=== PATIENT | female | born 1970 | race Caucasian/White ===

== ENCOUNTER 2017-04-28 12:57 | Emergency (ER) | payer BC ==
[~2017-04-28] VITALS: Ht 167.6 cm; Wt 60.1 kg
[2017-04-28 13:11] VITALS: TEMP 36.7; Ht 167.6 cm; Wt 60.1 kg
--- NOTE | 2017-04-28 13:58 | EMERGENCY ROOM VISIT NOTE ---
History First contact with patient: 13:22 Chief Complaint: LEG PAIN,LEG INJURY Stated Complaint: PAIN IN UPPER RIGHT INNER THIGH-POSSIBLE BLOOD CASEY History of Present Illness The patient is a 46 year old female who presents to the Emergency Room with complaints of right leg pain and swelling for the last 3 days. The patient denies any injury. She is very active and healthy. She is particularly complaining of pain up near the right side of her groin. It is tender to touch. The pain is worse with coughing. The patient denies any history of blood clots. She denies any chest pain or difficulty breathing. She does not smoke. She does not take any form of contraception. No recent long travel. She denies any fever or chills. She has not tried any pain medication at home. Review of Systems 10 system review performed and negative unless noted in HPI or below Past Medical/Surgical History Otherwise healthy Social History Smoking Status: Former Smoker Alcohol Use: occasionally Current/Historical Medications No Active Prescriptions or Reported Meds Physical Exam Vital Signs Date Time Temp Pulse Resp B/P (MAP) Pulse Ox O2 Delivery O2 Flow Rate FiO2 04/28/17 13:11 36.7 86 17 121/78 96 Room Air Physical Exam VITALS: Vitals are noted on the nurse's note and reviewed by myself. Vital signs stable. GENERAL: 46-year-old female, in no acute distress, nondiaphoretic, well- developed well-nourished. SKIN: Approximately 5 cm area of mild erythema in the right groin. Mild warmth. Tenderness to palpation noted. No fluctuance or significant induration. Skin is intact.. HEAD: Normocephalic atraumatic. HEART: Regular rate and rhythm without murmurs gallops or rubs. LUNGS: Clear to auscultation bilaterally without wheezes, rales or rhonchi. No accessory muscle use. MUSCULOSKELETAL: Very slight nonpitting edema noted to the right medial thigh. No significant warmth or erythema. No tenderness to touch. DP pulses +2 bilaterally. NEURO: Patient was alert and oriented to person place and time. Normal sensation to touch. No focal neurological deficits. Medical Decision & Procedures ER Provider Diagnostic Interpretation: Ultrasound lower extremity IMPRESSION: No sonographic abnormality within the right inner thigh. Electronically signed by: Jj Pacheco M.D. 04/28/2017 3:01 PM Dictated Date/Time: 04/28/2017 3:00 PM The status of this report is Signed. Draft = Not yet reviewed or approved by Radiologist. Signed = Reviewed and approved by Radiologist. IMPRESSION: No evidence of deep venous thrombus within the right lower extremity. Electronically signed by: Jj Pacheco M.D. 04/28/2017 3:00 PM Dictated Date/Time: 04/28/2017 2:59 PM The status of this report is Signed. Draft = Not yet reviewed or approved by Radiologist. Laboratory Results 04/28/17 13:55 Red Blood Count 4.11, Mean Corpuscular Volume 97.6, Mean Corpuscular Hemoglobin 33.8, Mean Corpuscular Hemoglobin Concent 34.7, Mean Platelet Volume 10.3, Neutrophils (%) (Auto) 65.5, Lymphocytes (%) (Auto) 22.6, Monocytes (%) (Auto) 9.9, Eosinophils (%) (Auto) 1.3, Basophils (%) (Auto) 0.6, Neutrophils # (Auto) 6.12, Lymphocytes # (Auto) 2.11, Monocytes # (Auto) 0.93, Eosinophils # (Auto) 0.12, Basophils # (Auto) 0.06 04/28/17 13:55 Test 04/28/17 13:55 White Blood Count 9.35 K/uL (4.8-10.8) Red Blood Count 4.11 M/uL (4.2-5.4) Hemoglobin 13.9 g/dL (12.0-16.0) Hematocrit 40.1 % (37-47) Mean Corpuscular Volume 97.6 fL (80-100) Mean Corpuscular Hemoglobin 33.8 pg (25-34) Mean Corpuscular Hemoglobin Concent 34.7 g/dl (32-36) Platelet Count 282 K/uL (130-400) Mean Platelet Volume 10.3 fL (7.4-10.4) Neutrophils (%) (Auto) 65.5 % Lymphocytes (%) (Auto) 22.6 % Monocytes (%) (Auto) 9.9 % Eosinophils (%) (Auto) 1.3 % Basophils (%) (Auto) 0.6 % Neutrophils # (Auto) 6.12 K/uL (1.4-6.5) Lymphocytes # (Auto) 2.11 K/uL (1.2-3.4) Monocytes # (Auto) 0.93 K/uL (0.11-0.59) Eosinophils # (Auto) 0.12 K/uL (0-0.5) Basophils # (Auto) 0.06 K/uL (0-0.2) RDW Standard Deviation 45.2 fL (36.4-46.3) RDW Coefficient of Variation 12.6 % (11.5-14.5) Immature Granulocyte % (Auto) 0.1 % Immature Granulocyte # (Auto) 0.01 K/uL (0.00-0.02) Prothrombin Time 10.9 SECONDS (9.0-12.0) Prothromb Time International Ratio 1.0 (0.9-1.1) Anion Gap 9.0 mmol/L (3-11) Est Creatinine Clear Calc Drug Dose 72.3 ml/min Estimated GFR () 88.3 Estimated GFR (Non- 76.1 BUN/Creatinine Ratio 15.5 (10-20) Calcium Level 8.7 mg/dl (8.5-10.1) ED Course Patient was seen and examined Vital signs including blood pressure were reviewed medications list was verified with patient Labs were obtained, and a saline lock was established Imaging was performed The patient was reassessed and resting comfortably. We discussed the results of her workup. She voiced understanding. I reviewed discharge instructions the patient. They voiced understanding and had no further questions. Medical Decision Differential diagnosis: DVT, cellulitis, superficial thrombophlebitis This patient is a 46-year-old female that presented to the emergency department with right groin and leg pain. She also was complaining of some mild swelling in the thigh. On exam, she did have some erythema in the groin area. Otherwise , her exam was unremarkable. An ultrasound was performed. There are no signs of superficial thrombophlebitis or DVT. There is no convincing evidence of a cellulitis on exam. She is afebrile. There is no leukocytosis. There was no area of induration or fluctuance to suggest a developing abscess. It is possible that she just has an area of irritation to the skin. She was instructed to try warm, moist compresses to the area. She was also instructed to follow-up with her primary care physician for a recheck if the pain persists. If she develops any new or concerning symptoms, she will return to the emergency department. This chart was completed in part utilizing [employer] Speech Voice Recognition software. Attempts were made to minimize the grammatical errors, random word insertions, pronoun errors and incomplete sentences. Any formal questions or concerns about the content, text or information contained within the body of this dictation should be directly addressed to the provider for clarification. Blood Pressure Screening Patient's blood pressure: Normal blood pressure Impression Primary Impression: Right leg pain Departure Information Dispostion Home / Self-Care Prescriptions No Active Prescriptions or Reported Meds Referrals No Doctor, Assigned (PCP) Patient Instructions [facility] Additional Instructions You were evaluated in the emergency department for pain/swelling in the right leg and groin. An ultrasound did not show any signs of a blood clot. Please apply warm, moist compresses to the area 3 times daily. Please follow-up with your primary care physician if the pain persists in the next 2 weeks. They may want to repeat an ultrasound. Please do not hesitate to return to the emergency department with any new or worsening symptoms such as increased redness, swelling, pain or fever.
[2017-04-28 14:10] LABS: BASO % 0.6 %; BASO ABS # 0.06 K/uL (0-0.2); COMPLETE YES; EOS % 1.3 %; HEMATOCRIT 40.1 % (37-47); IG% 0.1 %; LYMPH % 22.6 %; LYMPH ABS # 2.11 K/uL (1.2-3.4); MEAN CELL VOLUME 97.6 fL (80-100); MEAN CORPUSCULAR HEMOGLOBIN 33.8 pg (25-34); MEAN CORPUSCULAR HGB CONC 34.7 g/dl (32-36); MEAN PLATELET VOLUME 10.3 fL (7.4-10.4); MONO % 9.9 %; NEUT % 65.5 %; PLATELET COUNT 282 K/uL (130-400); RED BLOOD COUNT 4.11 M/uL (4.2-5.4); WHITE BLOOD COUNT 9.35 K/uL (4.8-10.8)
[2017-04-28 14:17] LABS: PROTHROMBIN TIME (PATIENT) 10.9 SECONDS (9.0-12.0)
[2017-04-28 14:33] LABS: BUN/CREATININE RATIO 15.5 (10-20); CALCIUM 8.7 mg/dl (8.5-10.1); CREATININE 0.9 mg/dl (0.60-1.20); POTASSIUM 3.6 mmol/L (3.5-5.1)
--- NOTE | 2017-04-28 15:01 | DIAGNOSTIC IMAGING REPORT ---
RIGHT LOWER EXTREMITY VENOUS DOPPLER CLINICAL HISTORY: R groin/thigh pain ? DVT vs infection COMPARISON STUDY: No previous studies for comparison. TECHNIQUE: Sonography of the deep venous system of the right lower extremity was performed. Compression and augmentation were evaluated. FINDINGS: The right common femoral, superficial femoral and popliteal veins were compressible. Augmentation was normal. Flow was shown within the deep calf vessels. IMPRESSION: No evidence of deep venous thrombus within the right lower extremity. Electronically signed by: Jj Pacheco M.D. 04/28/2017 3:00 PM Dictated Date/Time: 04/28/2017 2:59 PM
--- NOTE | 2017-04-28 15:02 | DIAGNOSTIC IMAGING REPORT ---
RIGHT THIGH ULTRASOUND CLINICAL HISTORY: Right groin pain. COMPARISON STUDY: No previous studies for comparison. FINDINGS: Sonography of the inner right thigh at site of erythema and swelling was performed. No mass, fluid collection, enlarged lymph node or other sonographic abnormality was identified. IMPRESSION: No sonographic abnormality within the right inner thigh. Electronically signed by: Jj Pacheco M.D. 04/28/2017 3:01 PM Dictated Date/Time: 04/28/2017 3:00 PM
[2017-04-28 15:45] VITALS: BP 114/68; PULSE 66; O2SAT 99
== END 2017-04-28 15:48 | disposition home or self-care (01) ==
LOC: C.EDB 13:01 → C.EDA 15:48
DX: M79.604 Pain in right leg (principal); L53.9 Erythematous condition, unspecified; Z87.891 Personal history of nicotine dependence

== ENCOUNTER → 2017-09-12 | Outpatient (CLI) | payer OTHER | END | disposition home or self-care (01) | LOC: C.PAPS 10:37 | PROVIDERS: ATTEND Obstetrics & Gynecology | DX: Z12.4 Encounter for screening for malignant neoplasm of cervix (principal) ==

== ENCOUNTER → 2017-10-08 | Outpatient (CLI) | payer OTHER ==
--- NOTE | 2017-10-09 15:14 | MAMMOGRAPHY REPORT ---
BILATERAL DIGITAL SCREENING MAMMOGRAM TOMOSYNTHESIS WITH CAD: 10/08/2017 CLINICAL HISTORY: Routine screening. TECHNIQUE: Breast tomosynthesis in addition to standard 2D mammography was performed. Current study was also evaluated with a Computer Aided Detection (CAD) system. COMPARISON: Comparison is made to exams dated: 01/21/2014 mammogram, 11/22/2012 ultrasound, 11/22/2012 mammogram, and 11/05/2012 mammogram - [facility]. BREAST COMPOSITION: The tissue of both breasts is extremely dense, which lowers the sensitivity of m ammography. FINDINGS: A linear scar marker overlies the 11:00 to 12:00 anterior right breast. A lobulated, parti ally obscured mass with associated coarse calcification in the upper outer quadrant the right breast was previously biopsied and yielded a fibroadenoma. No new suspicious mass, architectural distortion or cluster of microcalcifications is seen. IMPRESSION: ACR BI-RADS CATEGORY 1: NEGATIVE There is no mammographic evidence of malignancy. A 1 year screening mammogram is recommended. The pa tient will receive written notification of the results. Approximately 10% of breast cancers are not detected with mammography. A negative mammographic report should not delay biopsy if a clinically suggestive mass is present. Shira Lentz M.D. ay/:10/08/2017 15:40:44 Director Of [employer]idence [employer]: Donna SHAFFER)(M), [facility] letter sent: Normal 1/2 BI-RADS Code: ACR BI-RADS Category 1: Negative
== END | disposition home or self-care (01) ==
LOC: C.MAMM 14:16
PROVIDERS: ATTEND Obstetrics & Gynecology
DX: Z12.31 Encounter for screening mammogram for malignant neoplasm of breast (principal)